=== PATIENT | female | born 1980 | race Caucasian/White ===

== ENCOUNTER → 2019-11-09 | Outpatient (CLI) | payer OTHER ==
[~2019-11-09] MED LIST: LVT.088T; OSLT75C PO
--- NOTE | 2019-11-09 17:37 | Diagnostic Imaging Report ---
INDICATION: Left shoulder pain. TIME OF EXAM: 03:57 p.m. FINDINGS: Three views of the left shoulder demonstrate normal glenohumeral and acromioclavicular alignment. Acromiohumeral space is normal. No fracture or dislocation is seen. IMPRESSION: No acute bony abnormality is detected. Dictated by: Dictated on workstation # [id number]
== END ==
LOC: RAD 15:43
PROVIDERS: ATTEND Nurse Practitioner Family
DX: M25.512 Pain in left shoulder (principal)
CPT/HCPCS: 73030

== ENCOUNTER → 2019-12-14 | Outpatient (CLI) | payer OTHER ==
--- NOTE | 2019-12-14 11:14 | Diagnostic Imaging Report ---
PROCEDURE: MRI left upper extremity without contrast. TECHNIQUE: Multiplanar, multisequence non contrast-enhanced MRI of the left upper extremity was accomplished. INDICATION: Shoulder pain There are no prior MRI examinations available for comparison. The plain film examination of the left shoulder performed on 11/09/2019 failed to show any evidence for an acute abnormality. On the coronal T2 fat saturated series, there is no abnormal signal arising from the rotator cuff to suggest a tear. The supraspinatus muscle is not retracted or bunched. There does not appear to be any significant hypertrophy of the acromioclavicular joint and there is no narrowing of the outlet for the supraspinatus muscle. The biceps tendon and the subscapularis tendon are intact. The labrum is thinned centrally and may be slightly torn on a degenerative basis. There is no sign of a joint effusion. There is no abnormal signal arising from the osseous structures to indicate bone edema or a fracture. IMPRESSION: 1. There is no evidence for a tear of the rotator cuff. The supraspinatus muscle is not retracted or bunched. 2. The acromioclavicular joint is not hypertrophied and there is no narrowing of the outlet for the supraspinatus muscle. 3. The glenoid labrum may be slightly torn centrally on a degenerative basis. If further evaluation of the glenoid labrum is desired, then a follow-up exam with intra-articular contrast would be recommended. 4. There is no acute bony abnormality appreciated. Dictated by: Dictated on workstation # [id number]
== END ==
LOC: RAD 10:15
PROVIDERS: ATTEND Nurse Practitioner Family
DX: M25.512 Pain in left shoulder (principal)
CPT/HCPCS: 73221